=== PATIENT | female | born 1965 | race African-American/Black ===

== ENCOUNTER 2016-12-23 11:02 | Emergency (ER) | payer OTHER ==
[~2016-12-23] VITALS: Ht 170.2 cm; Wt 113.4 kg
[2016-12-23] MEDS ORDERED: NS 1,000 ML IV SCH (11:12)
[2016-12-23] MEDS ORDERED: BENT10CA PO (11:30)
[2016-12-23] MEDS ORDERED: LISI-542 PO (11:30)
[2016-12-23] MEDS ORDERED: ATOR1TAB21 PO (11:30)
[2016-12-23] MEDS ORDERED: HYDR12.55 PO (11:30)
[2016-12-23] MEDS ORDERED: TRAZ50TA4 PO (11:30)
[2016-12-23] MEDS ORDERED: VENL100T PO (11:30)
[2016-12-23] MEDS ORDERED: MOME50SP2 (11:30)
[2016-12-23] MEDS ORDERED: VITA50003 PO (11:30)
[2016-12-23] MEDS ORDERED: VICT18IN SC (11:30)
[2016-12-23] MEDS ORDERED: MIRA3350 PO (11:30)
[2016-12-23] MEDS ORDERED: METO25TA74 PO (11:30)
[2016-12-23] MEDS ORDERED: PANT40TA2 PO (11:30)
[2016-12-23] MEDS ORDERED: PATA0.2S OP (11:30)
[2016-12-23] MEDS ORDERED: BLAC40CA2 PO (11:30)
[2016-12-23] MEDS ORDERED: SUMA50TA2 PO (11:30)
[2016-12-23] MEDS ORDERED: ALBU17IN2 INH (11:30)
[2016-12-23] MEDS ORDERED: NEUR600T PO (11:30)
--- NOTE | 2016-12-23 11:41 | ECGEPIP ---
Stationary ECG Study [facility] - ED Test Date: 2016-12-23 Pat Name: SARAY BRITO Department: Room: - Gender: F Youth Program Director: ct : 1965 Requested By: Maru Soni Order Number: [id number] Reading MD: Flaquito Romero Measurements Intervals [place] Rate: 68 P: 18 MA: 171 QRS: 13 QRSD: 78 T: 38 QT: 401 QTc: 429 Interpretive Statements SINUS RHYTHM Electronically Signed On 12-23-2016 11:41:20 EDT by Flaquito Romero
[2016-12-23 11:48] LABS: BASO % 0.4 % (0.0-1.0); EOS # 0.1 K/mm3 (0.0-0.50); EOS % 1.2 % (0.0-3.0); LARGE UNSTAINED CELL # 0.1 K/mm3 (0.0-0.4); LYMPH # 2.4 K/mm3 (1.5-4.5); LYMPH % 33.9 % (24.0-44.0); MEAN CORPUSCULAR HEMOGLOBIN 30.7 pg (27.0-33.0); MEAN CORPUSCULAR HGB CONC 33.1 g/dl (32.0-36.5); MEAN CORPUSCULAR VOLUME 92.7 fl (80.0-96.0); MONO # 0.4 K/mm3 (0.0-0.8); MONO % 5.5 % (0.0-5.0); NEUTROPHILS # 4.1 K/mm3 (1.8-7.7); PLATELET COUNT, AUTOMATED 330 k/mm3 (150-450); RED CELL DISTRIBUTION WIDTH 12.4 % (11.5-14.5); WHITE BLOOD COUNT 7.2 K/mm3 (4.0-10.0)
[2016-12-23 12:14] LABS: ALBUMIN 3.4 GM/DL (3.2-5.2); ALBUMIN/GLOBULIN RATIO 0.74 (1.00-1.93); ALKALINE PHOSPHATASE 124 U/L (45-117); ALT/SGPT 32 U/L (12-78); ANION GAP 6 MEQ/L (8-16); AST/SGOT 19 U/L (15-37); BILIRUBIN,DIRECT < 0.1 MG/DL (0.0-0.2); BILIRUBIN,TOTAL 0.4 MG/DL (0.2-1.0); BLOOD UREA NITROGEN 10 MG/DL (7-18); CALCIUM LEVEL 8.9 MG/DL (8.5-10.1); CARBON DIOXIDE LEVEL 26 MEQ/L (21-32); CHLORIDE LEVEL 108 MEQ/L (98-107); CREATININE FOR GFR 0.79 MG/DL (0.55-1.02); GLOMERULAR FILTRATION RATE > 60.0 (>51); GLUCOSE, FASTING 93 MG/DL (70-105); POTASSIUM SERUM 3.9 MEQ/L (3.5-5.1); SODIUM LEVEL 140 MEQ/L (136-145)
[2016-12-23] MEDS ORDERED: MECLIZINE 25 MG TABLET PO ONE (12:30)
--- NOTE | 2016-12-23 12:50 | REP ---
Chest two views HISTORY: Chest pain Comparison: None The lungs are clear. The heart is normal in size. The pulmonary vasculature is normal in appearance. The bony structure is intact. IMPRESSION: No acute disease. Signed by Palomo Jolly MD 12/23/2016 12:41 P
[2016-12-23] MEDS ORDERED: MECL12.575 PO (14:04)
[2016-12-23 14:16] VITALS: BP 139/84
== END 2016-12-23 14:28 | disposition home or self-care (01) ==
LOC: M ED 12:49
DX: H81.10 Benign paroxysmal vertigo, unspecified ear (principal); E11.9 Type 2 diabetes mellitus without complications; I10 Essential (primary) hypertension; J30.2 Other seasonal allergic rhinitis; G43.909 Migraine, unspecified, not intractable, without status migrainosus; M54.9 Dorsalgia, unspecified; M25.551 Pain in right hip; Z79.899 Other long term (current) drug therapy